=== PATIENT | female | born 1990 | race Caucasian/White ===

== ENCOUNTER 2018-01-09 11:13 | Emergency (ER) | payer BC ==
[2018-01-09 11:19] VITALS: BP 120/64; PULSE 68; RESP 16; TEMP 98.3
[2018-01-09] MEDS ORDERED: PROPARACAINE 0.5% OPHTH DROPS 15 ML BTL BOTH EYES STA (11:26)
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
[2018-01-09] MEDS ORDERED: ERYTHROMYCIN 5 MG/GM OPHTH OINT 3.5 GM TUBE RIGHT EYE STA (11:50)
== END 2018-01-09 12:13 | disposition home or self-care (01) ==
LOC: EC 11:13
DX: T65.891A Toxic effect of other specified substances, accidental (unintentional), initial encounter (principal); H57.11 Ocular pain, right eye
CPT/HCPCS: 99283